=== PATIENT | male | born 1955 | race African-American/Black ===

== ENCOUNTER 2021-10-08 10:23 | Inpatient (IN) | payer OTHER ==
[~2021-10-08] VITALS: Ht 167.6 cm; Wt 86.2 kg
[2021-10-08] MEDS ORDERED: ETOMIDATE 2MG/ML 10ML VIAL IV ONE (10:45)
[2021-10-08] MEDS ORDERED: SODIUM CHLORIDE 0.9% 1,000 ML IV ONE ×2 (10:45→16:00)
[2021-10-08] MEDS ORDERED: SUCCINYLCHOLINE CHLORIDE 200MG/10ML IV ONE (10:45)
[2021-10-08] MEDS ORDERED: FENTANYL CITRATE/PF 500 MCG in SODIUM CHLORIDE 0.9% 40 ML IV PRN (10:45)
[2021-10-08] MEDS ORDERED: PROPOFOL 10MG/ML 100ML 100 ML IV ONE ×2 (10:45→18:30)
[2021-10-08 11:19] LABS: CLARITY URINE CLEAR (CLEAR); COLOR URINE YELLOW (YELLOW); KETONES URINE NEGATIVE (NEGATIVE); LEUKOCYTE ESTERASE URINE NEGATIVE (NEGATIVE); NITRITE URINE NEGATIVE (NEGATIVE); OCCULT BLOOD URINE NEGATIVE (NEGATIVE); PROTEIN URINE 2+ (NEGATIVE); SPECIFIC GRAVITY URINE 1.018 (1.005-1.030); UROBILINOGEN URINE 0.2 E.U./dL (0.2-1.0)
[2021-10-08] MEDS ORDERED: FENTANYL CITRATE 2,500 MCG in SODIUM CHLORIDE 0.9% 200 ML IV PRN (11:39)
[2021-10-08 11:41] LABS: *AMPHETAMINES SCREEN URINE NEGATIVE (NEGATIVE); *BARBITURATES SCREEN URINE NEGATIVE (NEGATIVE); *BENZODIAZEPINES SCREEN URINE NEGATIVE (NEGATIVE); *COCAINE SCREEN URINE PRESUMTIVE POSITIVE (NEGATIVE); CANNABINOID URINE SCREEN PRESUMTIVE POSITIVE (NEGATIVE); METHADONE URINE SCREEN NEGATIVE (NEGATIVE); OPIATES URINE SCREEN NEGATIVE (NEGATIVE); PHENCYCLIDINE URINE SCREEN NEGATIVE (NEGATIVE)
[2021-10-08 11:44] LABS: CHLORIDE 102 mEq/L (98-107)
[2021-10-08 11:57] LABS: CREATINE KINASE 258 IU/L (39-308); ETHANOL BLOOD < 10 mg/dL
[2021-10-08] MEDS ORDERED: FUROSEMIDE 40MG/4ML VIAL IVP ONE (12:00)
[2021-10-08 13:14] LABS: HEMATOCRIT. 53.5 % (42.0-52.0); HEMOGLOBIN. 16.9 g/dL (14.0-18.0); MEAN CORPUSCULAR HEMOGLOBIN 26.2 pg (28.0-32.0); MEAN CORPUSCULAR VOLUME 83.1 fL (80.0-94.0); MEAN PLATELET VOLUME 10.2 fl (7.4-10.4); PLATELET 87 x1000/uL (130-400); RED BLOOD CELL COUNT 6.44 mill/uL (4.7-6.1); RED CELL DISTRIBUTION WIDTH 16.8 % (11.6-14.6)
[2021-10-08 13:39] LABS: PLATELET ESTIMATE DECREASED
[2021-10-08 14:23] LABS: BG BASE EXCESS -3.3 mmol/L (-2.0-2.0); BG CARBOXYHEMOGLOBIN 0.5 % (0.5-1.5); BG DEOXYHEMOGLOBIN 1.4 % (0.0-5.0); BG FRACTION INSPIRED OXYGEN 100; BG HCO3 ACT 26.3 mmol/L (22.0-26.0); BG METHEMOGLOBIN 0.5 % (0.0-1.5); BG OXYGEN SATURATION 98.6 % (92.0-98.5); BG OXYHEMOGLOBIN 97.6 % (94.0-97.0); BG PCO2 64.6 mmHg (35.0-45.0); BG PH 7.227 (7.350-7.450); BG PO2 165.5 mmHg (75.0-100.0); BG SAMPLE SITE RIGHT RADIAL; BG TOTAL HEMOGLOBIN 18.5 g/dL (12.0-18.0); BG VENT MODE VENT - AC
[2021-10-08] MEDS ORDERED: PIPERACILLIN/TAZ 3.375G PREMIX 50 ML IV NR (14:30)
[2021-10-08] MEDS ORDERED: SODIUM CHLORIDE 0.9% 1,000 ML IV SCH (14:30)
[2021-10-08 23:15] VITALS: BP 109/76
[2021-10-08 23:30] VITALS: BP 130/85
[2021-10-08 23:45] VITALS: BP 128/80
[2021-10-08 23:57] VITALS: BP 130/85
[2021-10-09] VITALS (96 sets, daily range): BP systolic 117–189; BP diastolic 61–126
[2021-10-09 00:05] LABS: BG BASE EXCESS -0.9 mmol/L (-2.0-2.0); BG CARBOXYHEMOGLOBIN 0.7 % (0.5-1.5); BG DEOXYHEMOGLOBIN 1.2 % (0.0-5.0); BG FRACTION INSPIRED OXYGEN 70; BG HCO3 ACT 24.9 mmol/L (22.0-26.0); BG METHEMOGLOBIN 0.3 % (0.0-1.5); BG OXYGEN SATURATION 98.8 % (92.0-98.5); BG OXYHEMOGLOBIN 97.8 % (94.0-97.0); BG PCO2 45.4 mmHg (35.0-45.0); BG PH 7.357 (7.350-7.450); BG SAMPLE SITE RIGHT RADIAL; BG TOTAL HEMOGLOBIN 16.2 g/dL (12.0-18.0); BG VENT MODE VENT - AC
[2021-10-09] MEDS ORDERED: FENTANYL CITRATE/PF 2,500 MCG in SODIUM CHLORIDE 0.9% 200 ML IV PRN (00:45)
[2021-10-09 05:59] LABS: HEMATOCRIT. 51.3 % (42.0-52.0); HEMOGLOBIN. 16.1 g/dL (14.0-18.0); MEAN CORPUSCULAR HEMOGLOBIN 26.1 pg (28.0-32.0); MEAN CORPUSCULAR VOLUME 83.2 fL (80.0-94.0); RED BLOOD CELL COUNT 6.16 mill/uL (4.7-6.1); RED CELL DISTRIBUTION WIDTH 16.3 % (11.6-14.6)
[2021-10-09 07:55] LABS: PLATELET ESTIMATE MARKEDLY DECREASED
[2021-10-09 07:56] LABS: MEAN PLATELET VOLUME 10.4 fl (7.4-10.4); PLATELET 63 x1000/uL (130-400)
[2021-10-09 10:21] LABS: BG BASE EXCESS 4.6 mmol/L (-2.0-2.0); BG CARBOXYHEMOGLOBIN 0.3 % (0.5-1.5); BG DEOXYHEMOGLOBIN 1.9 % (0.0-5.0); BG FRACTION INSPIRED OXYGEN 50; BG HCO3 ACT 31.2 mmol/L (22.0-26.0); BG METHEMOGLOBIN 0.4 % (0.0-1.5); BG OXYGEN SATURATION 98.1 % (92.0-98.5); BG OXYHEMOGLOBIN 97.4 % (94.0-97.0); BG PCO2 53.1 mmHg (35.0-45.0); BG PH 7.387 (7.350-7.450); BG PO2 123.5 mmHg (75.0-100.0); BG SAMPLE SITE RIGHT RADIAL; BG TOTAL HEMOGLOBIN 16.9 g/dL (12.0-18.0); BG VENT MODE VENT - AC
[2021-10-09] MEDS: PANTOPRAZOLE SODIUM 40 MG/VIAL IV SCH (10:37)
[2021-10-09] MEDS: HYDRALAZINE 20MG/ML VIAL IV PRN ×2 (10:37→15:02)
[2021-10-09] MEDS: CLONIDINE 0.1MG TABLET PO PRN (10:38)
[2021-10-09] MEDS ORDERED: POTASSIUM CHLORIDE 20MEQ/PACKET PO NR (10:45)
[2021-10-09] MEDS: DEXT 5%/0.45% NACL 1000ML 1,000 ML IV SCH (11:11)
[2021-10-09] MEDS ORDERED: LACTULOSE 20G/30ML UDC PO NR (12:00)
[2021-10-09] MEDS ORDERED: METRONIDAZOLE 500 MG PREMIX 100 ML IV NR (13:00)
[2021-10-09] MEDS ORDERED: LOSA100T32 MT (13:03)
[2021-10-09] MEDS: CEFEPIME 1,000 MG in DEXTROSE 5% WATER 50 ML IV SCH (13:10)
[2021-10-09 13:11] LABS: BG CARBOXYHEMOGLOBIN 0.8 % (0.5-1.5); BG DEOXYHEMOGLOBIN 1.8 % (0.0-5.0); BG FRACTION INSPIRED OXYGEN 40; BG HCO3 ACT 26.2 mmol/L (22.0-26.0); BG METHEMOGLOBIN 0.3 % (0.0-1.5); BG OXYGEN SATURATION 98.2 % (92.0-98.5); BG OXYHEMOGLOBIN 97.1 % (94.0-97.0); BG PCO2 43.5 mmHg (35.0-45.0); BG PH 7.398 (7.350-7.450); BG PO2 108.8 mmHg (75.0-100.0); BG SAMPLE SITE RIGHT RADIAL; BG VENT MODE VENT - CPAP
[2021-10-09] MEDS: IPRATROPIUM/ALBUTEROL 0.5-3(2.5)MG/3ML NEB HHN SCH ×2 (14:06→20:27)
[2021-10-09] MEDS: BUDESONIDE 0.5MG/2ML NEB HHN SCH ×2 (14:06→20:27)
[2021-10-09] MEDS ORDERED: AMLO10TA80 MT (15:29)
[2021-10-09] MEDS ORDERED: HYDR25TA MT (15:32)
[2021-10-09] MEDS ORDERED: HYDRALAZINE HCL 100MG TABLET PO NR (15:45)
[2021-10-09] MEDS: AMLODIPINE 10MG TABLET PO SCH (15:54)
[2021-10-09] MEDS ORDERED: CEFEPIME HCL 1000MG/VIAL INJ IM SCH (21:00)
[2021-10-09] MEDS: HYDRALAZINE HCL 100MG TABLET PO SCH (22:13)
[2021-10-10] VITALS (65 sets, daily range): BP systolic 111–172; BP diastolic 55–116
[2021-10-10] MEDS: CEFEPIME 1,000 MG in DEXTROSE 5% WATER 50 ML IV SCH ×2 (00:15→11:26)
[2021-10-10] MEDS: IPRATROPIUM/ALBUTEROL 0.5-3(2.5)MG/3ML NEB HHN SCH ×4 (01:09→21:34)
[2021-10-10 05:38] LABS: BASOPHILS % 0.2 % (0.0-2.0); EOSINOPHILS % 0.1 % (0.0-5.0); HEMATOCRIT. 48.8 % (42.0-52.0); HEMOGLOBIN. 15.4 g/dL (14.0-18.0); LYMPHOCYTES % 8.2 % (20.0-50.0); MEAN CORPUSCULAR VOLUME 82.4 fL (80.0-94.0); MEAN PLATELET VOLUME 11.3 fl (7.4-10.4); MONOCYTES % 6.8 % (2.0-8.0); NEUTROPHILS % 84.7 % (40.0-76.0); PLATELET 72 x1000/uL (130-400); RED BLOOD CELL COUNT 5.93 mill/uL (4.7-6.1); RED CELL DISTRIBUTION WIDTH 16.4 % (11.6-14.6)
[2021-10-10 05:40] LABS: CHLORIDE 104 mEq/L (98-107)
[2021-10-10 05:45] LABS: PHOSPHORUS 1.7 mg/dL (2.5-4.9)
[2021-10-10 05:57] LABS: PROTHROMBIN TIME 11.2 sec (9.6-11.0)
[2021-10-10] MEDS: HYDRALAZINE HCL 100MG TABLET PO SCH ×3 (05:59→22:01)
[2021-10-10] MEDS: HYDRALAZINE 20MG/ML VIAL IV PRN (07:13)
[2021-10-10] MEDS: CLONIDINE 0.1MG TABLET PO PRN ×2 (07:14→14:16)
[2021-10-10] MEDS: DEXT 5%/0.45% NACL 1000ML 1,000 ML IV SCH (08:35)
[2021-10-10] MEDS: PANTOPRAZOLE SODIUM 40 MG/VIAL IV SCH (08:36)
[2021-10-10] MEDS: AMLODIPINE 10MG TABLET PO SCH (08:36)
[2021-10-10] MEDS ORDERED: POTASSIUM CHLORIDE 20MEQ TABLET SR PO NR (09:45)
[2021-10-10] MEDS: BUDESONIDE 0.5MG/2ML NEB HHN SCH ×2 (09:57→21:35)
[2021-10-10] MEDS: LOSARTAN POTASSIUM 50 MG TABLET PO SCH ×2 (10:29→17:41)
[2021-10-10] MEDS ORDERED: POTASSIUM PHOS,M-BASIC-D-BASIC 20 MMOL in DEXT 5% WATER 243.3333 ML IV ONE (11:00)
[2021-10-11] MEDS: CEFEPIME 1,000 MG in DEXTROSE 5% WATER 50 ML IV SCH ×2 (01:01→11:32)
[2021-10-11] MEDS: IPRATROPIUM/ALBUTEROL 0.5-3(2.5)MG/3ML NEB HHN SCH ×3 (02:20→12:50)
[2021-10-11 04:00] VITALS: BP 130/80
[2021-10-11] MEDS: HYDRALAZINE HCL 100MG TABLET PO SCH ×2 (05:49→14:52)
[2021-10-11 08:00] VITALS: BP 141/80
[2021-10-11] MEDS: PANTOPRAZOLE SODIUM 40 MG/VIAL IV SCH (08:19)
[2021-10-11] MEDS: AMLODIPINE 10MG TABLET PO SCH (08:19)
[2021-10-11] MEDS: LOSARTAN POTASSIUM 50 MG TABLET PO SCH ×2 (08:19→16:42)
[2021-10-11] MEDS: CLONIDINE 0.1MG TABLET PO PRN (11:32)
[2021-10-11 12:00] VITALS: BP 157/98
[2021-10-11] MEDS: BUDESONIDE 0.5MG/2ML NEB HHN SCH (12:49)
[2021-10-11 14:55] VITALS: BP 140/80
[2021-10-11] MEDS ORDERED: LEVO500T90 MT (14:56)
[2021-10-11] MEDS ORDERED: ALBU18HF2 IH (14:56)
[2021-10-11] MEDS ORDERED: FLUT1DIS3 INH (14:56)
[2021-10-11 15:50] VITALS: BP 140/87
== END 2021-10-11 18:20 | disposition home or self-care (01) | DRG 720 ==
LOC: ER 10:23 → MICUNO 16:43 → EDBD 16:43 → ENRESERV 21:58 → 8WST 10-10 16:40
PROVIDERS: ADMIT Internal Medicine Nephrology; ATTEND Internal Medicine Nephrology
PROC: 5A1935Z Respiratory Ventilation, Less than 24 Consecutive Hours (ICD-10-PCS; principal; 2021-10-08)
PROC: 0BH17EZ Insertion of Endotracheal Airway into Trachea, Via Natural or Artificial Opening (ICD-10-PCS; 2021-10-08)
PROC: 5A09357 Assistance with Respiratory Ventilation, Less than 24 Consecutive Hours, Continuous Positive Airway Pressure (ICD-10-PCS; 2021-10-08)
DX: A41.9 Sepsis, unspecified organism (principal); J96.02 Acute respiratory failure with hypercapnia; G93.49 Other encephalopathy; J68.0 Bronchitis and pneumonitis due to chemicals, gases, fumes and vapors; J18.9 Pneumonia, unspecified organism; E72.20 Disorder of urea cycle metabolism, unspecified; E87.2 Acidosis; N17.9 Acute kidney failure, unspecified; D69.6 Thrombocytopenia, unspecified; E87.6 Hypokalemia; I10 Essential (primary) hypertension; R65.20 Severe sepsis without septic shock; K57.30 Diverticulosis of large intestine without perforation or abscess without bleeding; N40.0 Benign prostatic hyperplasia without lower urinary tract symptoms; F14.90 Cocaine use, unspecified, uncomplicated; F12.90 Cannabis use, unspecified, uncomplicated; I51.7 Cardiomegaly; R74.01 Elevation of levels of liver transaminase levels
CPT/HCPCS: 31500; 36415; 36600; 71045; 71250; 74176; 76700; 80048; 80053; 80305; 80307; 80320; 80329; 81003; 82140; 82375; 82550; 82805; 82962; 83605; 83735; 83880; 84100; 84153; 84443; 84484; 85025; 93005; 93970; 94002; 94003; 94640; 97161; 99291; C9113; J0360; J0692; J1940; J2543; J2704; J3010; J3490; J7030; J7060; J7626; G0103; G0480